=== PATIENT | male | born 1990 | race Caucasian/White ===

== ENCOUNTER → 2022-07-22 16:04 | Outpatient (CLI) | payer BC, SELFPAY ==
--- NOTE | ~2022-07-22 | XR_ITS ---
EXAMINATION: XR thoracic spine 2V DATE: 07/22/2022 16:22 INDICATION: Chronic thoracic spine pain. TECHNIQUE: 3 views of thoracic spine were obtained. COMPARISON: None. FINDINGS: There is 19 degrees levoscoliosis from T1 to T6 by the Ventura method. There is 14 degrees dex troscoliosis from T6 to T10. Vertebral body heights and intervertebral disc heights are normal. There are endplate osteophytes at multiple levels. IMPRESSION: 1. Mild thoracic spondylosis. 2. Scoliosis. Reviewed, dictated and finalized at location A. [employer]
== END ==
PROVIDERS: PCP Internal Medicine; Visit Provider Chiropractor
DX: M54.6 Pain in thoracic spine (principal); G89.29 Other chronic pain; M47.814 Spondylosis without myelopathy or radiculopathy, thoracic region; M41.9 Scoliosis, unspecified
CPT/HCPCS: 72070

== ENCOUNTER 2024-03-06 09:58 | Emergency (ER) | payer BC, SELFPAY ==
--- NOTE | ~2024-03-06 | CT_ITS ---
EXAMINATION: CT brain wo con DATE: 03/06/2024 10:59 INDICATION: Right-sided head pressure/headache. TECHNIQUE: Computed tomography (CT) of the head was performed without intravenous contrast. Sagittal and coronal reconstructions were performed. The mA was adjusted according to patient size. Iterative reconstruction technique was employed. The dose-length product was 605.33 mGy-cm. COMPARISON: None FINDINGS: No acute intracranial hemorrhage or abnormal extra axial fluid collection. No loss of burton-white rajwinder er differentiation to suggest acute infarct. There is mild scattered white matter hypoattenuation whi ch is atypical for age. No abnormal mass lesions. Ventricles are normal and symmetric. The orbits, pa ranasal sinuses and mastoid air cells are normal. IMPRESSION: 1. A few scattered small regions of nonspecific burton-white matter hypoattenuation which is atypical f or age The differential diagnosis includes premature chronic small vessel ischemic disease (especiall y if the patient has cardiovascular risk factors), demyelinating disease such as multiple sclerosis o r acute disseminated encephalomyelitis (ADEM), CADASIL (especially if age 20-40 with prominent anteri or temporal lobe or external capsule involvement), drug abuse (especially with cerebellar involvement ), vasculitis, reactive astrocytosis (gliosis) secondary to nonspecific etiology and infection or met astatic disease in the appropriate clinical setting. Consider pre and postcontrast brain MR for furth er evaluation. Reviewed, dictated and finalized at location A. IMPRESSION: 1. A few scattered small regions of nonspecific burton-white matter hypoattenuati on which is atypical for age The differential diagnosis includes premature jazz musician chavo small vessel ischemic disease (especially if the patient has cardiovascular risk factors), demyelinating disease such as multiple sclerosis or acute disse minated encephalomyelitis (ADEM), CADASIL (especially if age 20-40 with promine nt anterior temporal lobe or external capsule involvement), drug abuse (especia lly with cerebellar involvement), vasculitis, reactive astrocytosis (gliosis) s econdary to nonspecific etiology and infection or metastatic disease in the renee ropriate clinical setting. Consider pre and postcontrast brain MR for further e valuation.
--- NOTE | ~2024-03-06 | CT_ITS ---
EXAMINATION: CTA brain DATE: 03/06/2024 13:21 INDICATION: Headache. TECHNIQUE: Computed tomographic angiography (CTA) of the head was performed with 100 mL Omnipaque-350 intravenous contrast. Automated exposure control and iterative reconstruction technique were employe d. The dose-length product was 525.31 mGy-cm. Maximum intensity projection 3D reconstructions were c reated. Volume-rendered 3D reconstructions of the intracranial arteries were created by the technolog ist on a separate workstation. COMPARISON: Head CT 03/06/2024 FINDINGS: There is low attenuation in the right parietal white matter. There is no intracranial hemor rhage. The ventricles are normal in size. The orbits are normal. The paranasal sinuses are clear. The mastoid air cells are normal. The vertebral arteries are codominant. There is no significant stenosi s of basilar artery or the posterior cerebral arteries. There is no significant stenosis of the intra cranial internal carotid arteries or anterior or middle cerebral arteries. The posterior communicatin g arteries are normal. The anterior communicating artery is normal. There is no aneurysm. IMPRESSION: 1. Low attenuation in the right parietal white matter. The differential diagnosis includes premature chronic small vessel ischemic disease (especially if the patient has cardiovascular risk factors), de myelinating disease such as multiple sclerosis, drug abuse, vasculitis, or reactive astrocytosis (gli osis) secondary to nonspecific etiology. 2. No aneurysm or significant intracranial arterial stenosis. Reviewed, dictated and finalized at location A. IMPRESSION: 1. Low attenuation in the right parietal white matter. The differential diagnos is includes premature chronic small vessel ischemic disease (especially if the patient has cardiovascular risk factors), demyelinating disease such as multipl e sclerosis, drug abuse, vasculitis, or reactive astrocytosis (gliosis) seconda ry to nonspecific etiology. 2. No aneurysm or significant intracranial arterial stenosis.
[2024-03-06 10:03] VITALS: BP 147/93; PULSE 106; RESP 16; TEMP 36.3; O2SAT 98
--- NOTE | 2024-03-06 10:11 | ED.HA ---
HPI - Headache General Chief Complaint: Headache Stated Complaint: pressure in my brain Time Seen by Provider: 03/06/24 10:00 Source: patient Mode of arrival: ambulatory Limitations: no limitations History of Present Illness HPI Narrative: Robert is a 33-year-old male patient presenting to the emergency room with complaints of increased pressure on the right side of his head /headache. He reports this has been going on for 1 month. Has a order for an MRI to be completed and has a scheduled but to fell as though his pressure got worse today so this prompted in to come in. He denies any dizziness, visual changes, unsteady gait,shortness of breath, or chest pain. Rates his pain currently a 08/03 in states that the pressure. History of high blood pressure blood pressure is 147/93. Is wanting head CT. Related Data Home Medications Medication Instructions Recorded Confirmed buspirone 10 mg tablet 50 mg HS 03/06/24 carvedilol 12.5 mg tablet mg 03/06/24 dapagliflozin propanediol 10 mg mg 03/06/24 tablet (Farxiga) hydroxyzine pamoate 50 mg capsule 200 mg BID 03/06/24 quetiapine 200 mg tablet 200 mg PO HS 03/06/24 sacubitril 49 mg-valsartan 51 mg tablet 03/06/24 tablet (Entresto) spironolactone 25 mg tablet mg 03/06/24 Allergies Allergy/AdvReac Type Severity Reaction Status Date / Time Sulfa (Sulfonamide Allergy Mild Unknown Verified 03/06/24 10:10 Antibiotics) Penicillins Allergy Unknown Unknown Verified 03/06/24 10:10 Review of Systems Review of Systems: Pertinent positives per HPI. Patient denies any fever, chills, rash, headache, visual changes, dizziness, cough, runny nose, sore throat, shortness of breath, chest pain, palpitations, nausea, vomiting, diarrhea, constipation, abdominal pain, or any urinary issues. PMFSH Social History Social History Alcohol intake: current Comments At the time of my signature, I reviewed and agree with the nursing past medical, surgical, social, and family history. There is no relevant family history pertinent to the patient complaint. Exam Narrative: General: Well-developed, well nourished, in no apparent distress Head: Normocephalic, atraumatic Eyes: Pupils equally round and reactive to light bilaterally, EOM intact, sclera and conjunctive clear, no discharge, lids normal Ears: TMs intact and clear, ear canals clear, no drainage, grossly hearing normal. Nose: Nares patent, no discharge, no inflammation, no sinus tenderness. Mouth: Oropharynx without lesions or masses, good dentition, MMM. Tongue midline, even rise and fall of uvula Neck: Supple, trachea midline, no enlargement of anterior or posterior cervical nodes, no thyroid masses or goiter palpable. Cardio: Regular rate and rhythm, s1 and s2 normal, no murmur appreciated. Resp: Clear to auscultation bilaterally anteriorly and posteriorly, no rhonchi, rales, wheezing or rubs Musculoskeletal: No deformity, non-tender to palpation, grossly normal range of motion, muscle strength strong and equal, peripheral pulse strong, no edema, no cyanosis, normal gait and station Neuro: Alert and oriented x4 with normal speech, no focal deficits, cranial nerves I through XII intact, muscle strength 5 out of 5, sensation intact bilaterally Course Course Emergency Course: Portions of this record may have been created with voice recognition software. Vital Signs Vital signs: Vital Signs Temperature 36.3 C L 03/06/24 10:03 Pulse Rate 106 H 03/06/24 10:03 Respiratory Rate 16 03/06/24 10:03 Blood Pressure 147/93 H 03/06/24 10:03 Pulse Oximetry 98 03/06/24 10:03 Oxygen Delivery Room Air 03/06/24 10:03 Temperature 36.4 C 03/06/24 14:50 Pulse Rate 110 H 03/06/24 14:50 Respiratory Rate 16 03/06/24 14:50 Blood Pressure 128/87 03/06/24 14:50 Pulse Oximetry 97 03/06/24 14:50 Oxygen Delivery Room Air 03/06/24 10
[2024-03-06 11:10] VITALS: BP 127/89; PULSE 99; RESP 16; O2SAT 97
[2024-03-06 11:31] VITALS: BP 120/85; PULSE 92; RESP 22; TEMP 36.4; O2SAT 98
[2024-03-06 12:01] VITALS: BP 134/89; PULSE 101; RESP 23; O2SAT 100
[2024-03-06 12:26] LABS: Basophils Absolute Auto 0.1 K/mm3 (0.0-0.1); Basophils Percent Auto 0.7 % (0.2-1.2); Eosinophils Absolute Auto 0.1 K/mm3 (0-0.3); Eosinophils Percent Auto 1.1 % (0-4.4); Hematocrit 44.7 % (42.0-52.0); Hemoglobin 15.2 g/dL (14.0-18.0); Immature Granulocyte Absolute 0.03 K/mm3 (0.00-0.031); Immature Granulocyte Percent A 0.3 % (0-0.5); Lymphocytes Absolute Auto 2.65 K/mm3 (0.9-3.2); Lymphocytes Percent Auto 29.4 % (18.3-44.2); Mean Corpuscular Hemoglobin 29.9 pg (26-34); Mean Corpuscular Volume 87.8 fl (80-100); Mean Platelet Volume 10.4 fl (7.4-10.4); Monocytes Absolute Auto 0.7 K/mm3 (0.1-0.6); Monocytes Percent Auto 8.1 % (2.6-8.5); Neutrophils Absolute Auto 5.4 K/mm3 (1.3-6.7); Neutrophils Percent Auto 60.4 % (45.5-73.1); Platelet Count Result 418 k/mm3 (150-375); Red Blood Count 5.09 M/mm3 (4.6-6.20); Red Cell Distribution Width 12.5 % (11.5-14.5)
[2024-03-06 12:32] VITALS: BP 133/96; PULSE 113; RESP 18; O2SAT 100
[2024-03-06 12:37] LABS: Alanine Aminotransferase 56 U/L (6-50); Albumin Level 4.9 g/dL (3.5-5.1); Alkaline Phosphatase 83 U/L (38-126); Anion Gap 13 mmol/L (4-12); Aspartate Amino Transferase 37 U/L (17-59); Bilirubin,Total 0.5 mg/dL (0.2-1.3); Blood Urea Nitrogen 11 mg/dL (9-20); Calcium 9.2 mg/dL (8.4-10.2); Carbon Dioxide 25 mmol/L (22-30); Chloride 100 mmol/L (98-107); Estimated CRCL calculation 108 ml/min; Estimated Glomerular Filt Rate > 60; Glucose 107 mg/dL (65-110); Potassium 3.9 mmol/L (3.4-5.0); Sodium 138 mmol/L (137-145)
[2024-03-06 14:50] VITALS: BP 128/87; PULSE 110; RESP 16; TEMP 36.4; O2SAT 97
[2024-03-06 15:13] LABS: Ammonia < 9 umol/L (9-30)
--- NOTE | 2024-03-06 15:29 | PCCCNOTE ---
CC called to the ED for information on POA papers. Pt had requested this to the [employer], due to pt having hallucinations and has a drug history. Pt did not wish to fill them out at this time. Papers left with the patient and his , notified them to request care coordination when they were ready to fill them out.
== END 2024-03-06 15:33 | disposition left against medical advice (07) ==
LOC: ANHED 14:09 → ANH3MEDSUR 15:47
PROVIDERS: Emergency Provider Nurse Practitioner Family; PCP Internal Medicine; Visit Provider General Practice
DX: G44.89 Other headache syndrome (principal); Z79.899 Other long term (current) drug therapy; R93.0 Abnormal findings on diagnostic imaging of skull and head, not elsewhere classified
CPT/HCPCS: 36415; 70450; 70496; 80053; 82140; 85025; 99284; Q9967

== ENCOUNTER 2024-04-25 11:02 | Emergency (ER) | payer BC, SELFPAY ==
--- NOTE | ~2024-04-25 | CT_ITS ---
CT brain wo con Ordering provider: Cici Hurtado MD History: 33 years Male with . KELLEY, right scalp swelling? . Comparison: March 06, 2024 Technique: CT of the head without contrast. Radiation reduction technique utilized.The dose-length product was 605.33 mGy-cm. FINDINGS: BRAIN PARENCHYMA AND CSF SPACES: No midline shift, mass effect or hemorrhage. The brain parenchyma a nd CSF spaces are otherwise normal. VISUALIZED PARANASAL SINUSES: Well aerated. MASTOIDS: Well aerated. BONES: The bones appear intact. SOFT TISSUES: Visualized nasopharynx is normal. Superficial soft tissues are normal. IMPRESSION: No acute intracranial findings. Reviewed, dictated and finalized at location A.
[2024-04-25 11:04] VITALS: BP 163/99; PULSE 107; RESP 14; TEMP 36.6; O2SAT 97
[2024-04-25 11:24] VITALS: BP 130/86; PULSE 99; RESP 14; O2SAT 100
--- NOTE | 2024-04-25 12:05 | PC.NURSE ---
Patient at 1154 stated that he was experiencing mild pain now. Patient also states his vision was a little blurry. Visual acuity done on patient.
--- NOTE | 2024-04-25 13:10 | ED.SKABFB ---
HPI - Skin/Abscess/Foreign Bdy General Chief complaint: Skin/Abscess/Foreign Body Stated complaint: head swelling Time Seen by Provider: 04/25/24 12:07 History of Present Illness HPI narrative: 33-year-old male presenting with head swelling. States that for the last couple of days he has had intermittent swelling along the right lateral side of his head. States that it starts behind his right ear and extends up to his right judaism. Denies trauma or bruising. Denies alleviating or exacerbating factors. Currently the swelling has gone down. States that he was just diagnosed with multiple sclerosis yesterday and he is in the middle of starting treatment. He denies numbness or weakness, speech changes. States that he had a brief episode of seeing spots but this has resolved. Related Data Home Medications Medication Instructions Recorded Confirmed buspirone 10 mg tablet 50 mg HS 03/06/24 carvedilol 12.5 mg tablet mg 03/06/24 dapagliflozin propanediol 10 mg mg 03/06/24 tablet (Farxiga) hydroxyzine pamoate 50 mg capsule 200 mg BID 03/06/24 quetiapine 200 mg tablet 200 mg PO HS 03/06/24 sacubitril 49 mg-valsartan 51 mg tablet 03/06/24 tablet (Entresto) spironolactone 25 mg tablet mg 03/06/24 Allergies Allergy/AdvReac Type Severity Reaction Status Date / Time Sulfa (Sulfonamide Allergy Mild Unknown Verified 04/25/24 11:29 Antibiotics) Penicillins Allergy Unknown Unknown Verified 04/25/24 11:29 Review of Systems Review of Systems: All systems reviewed & are unremarkable except as noted in HPI and below PMFSH Social History Social History Alcohol intake: current Exam Narrative: GENERAL: Well-appearing, well-nourished, and in no acute distress. HEAD: Normocephalic, atraumatic. No swelling or tenderness of the scalp EYES: PERRLA and EOMI. ENT: mucous membranes moist. Normal TM NECK: Supple. CHEST:No respiratory distress. HEART: Regular rate and rhythm EXTREMITIES: Normal range of motion. SKIN: Warm, dry, no rash. NEURO: No focal deficits. Alert and oriented x3. PSYCH: Normal mood and affect. Course Vital Signs Vital signs: Vital Signs Temperature 98 F 04/25/24 11:04 Pulse Rate 107 H 04/25/24 11:04 Respiratory Rate 14 04/25/24 11:04 Blood Pressure 163/99 H 04/25/24 11:04 Pulse Oximetry 97 04/25/24 11:04 Oxygen Delivery Room Air 04/25/24 11:04 Temperature 98.1 F 04/25/24 14:18 Pulse Rate 90 04/25/24 14:18 Respiratory Rate 16 04/25/24 14:18 Blood Pressure 134/80 04/25/24 14:18 Pulse Oximetry 98 04/25/24 14:18 Oxygen Delivery Room Air 04/25/24 11:24 MDM - Skin/Abscess/Foreign Bdy MDM Narrative Medical decision making narrative: 33-year-old male presenting with intermittent scalp swelling. Exam remarkable for the above. I do not appreciate any swelling at this time. CT brain shows no acute abnormalities. Feel the patient is safe for outpatient management. He has close follow-up scheduled with his urologist. Also recommend PCP follow-up. Appropriate return precautions given. He is comfortable with this plan. Discharged in stable condition. Differential Diagnosis Differential diagnosis: Likely abscess of skin or subcutaneous tissue, cellulitis and other (Scalp swelling) Medical Records Attestation: I reviewed the patient's medical records. Imaging Data Radiologist's impression: ITS Impressions Head CT 04/25/24 13:32 IMPRESSION: No acute intracranial findings. Critical Care Time Critical Care Time Critical Care Time: No Discharge Plan Discharge Clinical Impression: Swelling of scalp Patient Disposition: Home, Self-Care Condition: Stable Instructions: Antibiotic Form Additional Instructions: Your head CT today shows no acute abnormalities. Please follow-up closely with your neurologist. If your symptoms worsen or other concerning sympt
[2024-04-25 14:18] VITALS: BP 134/80; PULSE 90; RESP 16; TEMP 36.7; O2SAT 98
== END 2024-04-25 14:20 | disposition home or self-care (01) ==
PROVIDERS: Emergency Provider Emergency Medicine; PCP Internal Medicine
DX: R22.0 Localized swelling, mass and lump, head (principal); G35 Multiple sclerosis; I50.9 Heart failure, unspecified; I11.0 Hypertensive heart disease with heart failure; Z79.899 Other long term (current) drug therapy
CPT/HCPCS: 70450; 99284